=== PATIENT | female | born 1930 | race Caucasian/White ===

== ENCOUNTER 2016-08-09 10:45 | Day surgery (SDC) | payer MEDICARE, BC ==
[2016-08-09] MEDS ORDERED: FENTANYL 100 MCG/2 ML VIAL ONE (10:48)
[2016-08-09] MEDS ORDERED: ETOMIDATE 40 MG/20 ML VIAL IV ONE (10:50)
== END 2016-08-09 12:15 | disposition home or self-care (01) ==
LOC: SDS 10:45 → GI 10:45
PROVIDERS: ATTEND Internal Medicine Cardiovascular Disease
DX: I35.9 Nonrheumatic aortic valve disorder, unspecified (principal); I10 Essential (primary) hypertension; E78.5 Hyperlipidemia, unspecified; Z95.2 Presence of prosthetic heart valve; Z79.899 Other long term (current) drug therapy
CPT/HCPCS: 1922; 93312; 93321; 93325; J3010